=== PATIENT | female | born 1995 | race African-American/Black ===

== ENCOUNTER 2021-05-31 01:53 | Emergency (ER) | payer MEDICAID ==
[~2021-05-31] VITALS: Ht 170.2 cm; Wt 115.0 kg
[~2021-05-31 01:53] MED LIST: DOCU-138 MT; FERR325T6 MT
[2021-05-31 02:00] VITALS: BP 143/94
== END 2021-05-31 02:45 | disposition left against medical advice (07) ==
LOC: ER 01:53
DX: R07.89 Other chest pain (principal); I10 Essential (primary) hypertension
CPT/HCPCS: 71045; 99283

== ENCOUNTER 2021-06-16 13:43 | Emergency (ER) | payer MEDICAID ==
[~2021-06-16] VITALS: Ht 170.2 cm; Wt 136.0 kg
[2021-06-16] MEDS ORDERED: KETOROLAC 30MG/ML VIAL IV ONE (14:15)
[2021-06-16 15:38] VITALS: BP 145/80
[2021-06-16] MEDS ORDERED: HYDR-4001 MT (16:18)
[2021-06-16] MEDS ORDERED: IBUP-2028 MT (16:18)
== END 2021-06-16 17:29 | disposition home or self-care (01) ==
LOC: ER 13:43
DX: S93.491A Sprain of other ligament of right ankle, initial encounter (principal); V48.4XXA Person boarding or alighting a car injured in noncollision transport accident, initial encounter; Y93.89 Activity, other specified; Y92.488 Other paved roadways as the place of occurrence of the external cause; Y99.0 Civilian activity done for income or pay
CPT/HCPCS: 29515; 73610; 73700; 96374; 99284; J1885

== ENCOUNTER 2024-01-06 00:25 | Emergency (ER) | payer MEDICAID, OTHER ==
[~2024-01-06] VITALS: Ht 167.6 cm; Wt 200.0 kg
[~2024-01-06 00:25] MED LIST changes: +HYDR-4001 MT; +IBUP-2028 MT
[2024-01-06 00:29] VITALS: O2SAT 99
[2024-01-06 01:35] LABS: BASOPHILS % 0.8 % (0.0-2.0); HEMATOCRIT. 28.6 % (36.0-48.0); HEMOGLOBIN. 8.4 g/dL (12.0-16.0); LYMPHOCYTES % 31.6 % (20.0-50.0); MEAN CORPUSCULAR HEMOGLOBIN 19.9 pg (28.0-32.0); MEAN CORPUSCULAR HGB CONC 29.4 g/dL (31.0-37.0); MEAN CORPUSCULAR VOLUME 67.8 fL (81.0-99.0); MEAN PLATELET VOLUME 7.7 fl (7.4-10.4); MONOCYTES % 7.4 % (2.0-8.0); NEUTROPHILS % 59.2 % (40.0-76.0); PLATELET 427 x1000/uL (130-400); RED BLOOD CELL COUNT 4.22 mill/uL (4.2-5.4); RED CELL DISTRIBUTION WIDTH 18.8 % (11.6-14.6); WHITE BLOOD COUNT 6.2 x1000/uL (4.5-11.0)
[2024-01-06 01:41] LABS: ADD RBC MORPHOLOGY YES; DIFFERENTIAL COMMENT 1
[2024-01-06 02:01] LABS: CHLORIDE 108 mEq/L (98-107); POTASSIUM 3.9 mEq/L (3.5-5.1); SODIUM 140 mEq/L (136-145)
[2024-01-06 02:02] LABS: CALCIUM 8.8 mg/dL (8.7-10.4); CARBON DIOXIDE 25 mEq/L (21-32)
[2024-01-06 02:07] LABS: CREATININE 0.8 mg/dL (0.6-1.0); GLUCOSE 116 mg/dL (70-105); UREA NITROGEN BLOOD 17 mg/dL (9-23)
[2024-01-06 02:11] LABS: TROPONIN I HIGH SENSITIVITY < 4 ng/L (3.0-34)
[2024-01-06 02:13] LABS: HCG SCREEN NEGATIVE
[2024-01-06 03:11] VITALS: BP 142/87; PULSE 70; RESP 13; TEMP 97.7
[2024-01-06] MEDS ORDERED: NAPR-1176 MT (03:28)
[2024-01-06 04:00] LABS: TROPONIN I HIGH SENSITIVITY < 4 ng/L (3.0-34)
[2024-01-06 08:25] LABS: ANISOCYTOSIS 2+; MICROCYTOSIS 2+; PLATELET ESTIMATE SLIGHTLY INCREASED
[2024-01-06 08:26] LABS: HYPOCHROMASIA 1+
== END 2024-01-06 05:34 | disposition home or self-care (01) ==
LOC: ER 00:25
DX: M94.0 Chondrocostal junction syndrome [Tietze] (principal)
CPT/HCPCS: 80048; 84703; 85025; 85379; 84484; 36415; 71045; 99284; Z7610

== ENCOUNTER 2024-10-04 | Emergency (ER) | payer MEDICAID ==
[~2024-10-04] VITALS: Ht 172.7 cm; Wt 120.0 kg
[~2024-10-04] MED LIST changes: +NAPR-1176 MT
[2024-10-04 00:23] VITALS: O2SAT 99
[2024-10-04] MEDS ORDERED: METOCLOPRAMIDE HCL 10MG TABLET PO ONE (01:45)
[2024-10-04] MEDS ORDERED: DIPHENHYDRAMINE 50MG CAPSULE PO ONE (01:45)
[2024-10-04] MEDS ORDERED: KETOROLAC 30MG/ML VIAL IM ONE (01:45)
[2024-10-04] MEDS ORDERED: ASPI-1154 PO (01:58)
[2024-10-04 02:14] VITALS: BP 143/90; PULSE 90; RESP 18; TEMP 36.4; O2SAT 100
[2024-10-04] MEDS ORDERED: METOCLOPRAMIDE HCL 10MG TABLET PO NR (02:15)
[2024-10-04] MEDS ORDERED: DIPHENHYDRAMINE 25MG CAPSULE PO NR (02:15)
[2024-10-04] MEDS ORDERED: KETOROLAC 30MG/ML VIAL IM NR (02:15)
== END 2024-10-04 02:17 | disposition home or self-care (01) ==
LOC: ER
DX: G43.909 Migraine, unspecified, not intractable, without status migrainosus (principal); R07.89 Other chest pain; F41.9 Anxiety disorder, unspecified; Z79.899 Other long term (current) drug therapy
CPT/HCPCS: 99283; 71045; 93005; Q0163; J1885; J8597

== ENCOUNTER 2024-12-17 02:08 | Emergency (ER) | payer MEDICAID ==
[~2024-12-17] VITALS: Ht 175.3 cm; Wt 136.0 kg
[~2024-12-17 02:08] MED LIST changes: +ASPI-1154 PO
[2024-12-17 02:16] VITALS: O2SAT 99
[2024-12-17 02:30] VITALS: TEMP 36.8
[2024-12-17 03:29] LABS: BASOPHILS % 0.3 % (0.0-2.0); EOSINOPHILS % 1.9 % (0.0-5.0); HEMATOCRIT. 29.6 % (36.0-48.0); HEMOGLOBIN. 8.6 g/dL (12.0-16.0); LYMPHOCYTES % 24.7 % (20.0-50.0); MEAN CORPUSCULAR HEMOGLOBIN 19.3 pg (28.0-32.0); MEAN CORPUSCULAR HGB CONC 29.2 g/dL (31.0-37.0); MEAN CORPUSCULAR VOLUME 66.2 fL (81.0-99.0); NEUTROPHILS % 66.1 % (40.0-76.0); PLATELET 331 x1000/uL (130-400); RED BLOOD CELL COUNT 4.47 mill/uL (4.2-5.4); WHITE BLOOD COUNT 7.8 x1000/uL (4.5-11.0)
[2024-12-17 03:30] VITALS: TEMP 98.2
[2024-12-17] MEDS: ACETAMINOPHEN 325MG TABLET PO ONE (03:30)
[2024-12-17 03:37] LABS: CHLORIDE 109 mEq/L (98-107); SODIUM 140 mEq/L (136-145)
[2024-12-17 03:38] LABS: ADD RBC MORPHOLOGY YES; CALCIUM 8.8 mg/dL (8.7-10.4); CARBON DIOXIDE 26 mEq/L (21-32); DIFFERENTIAL COMMENT 1
[2024-12-17 03:43] LABS: CREATININE 0.7 mg/dL (0.6-1.0); ETHANOL BLOOD < 10 mg/dL (<10); GLUCOSE 129 mg/dL (70-105); UREA NITROGEN BLOOD 16 mg/dL (9-23)
[2024-12-17 03:44] LABS: PARTIAL THROMBOPLASTIN TIME 24.8 sec (23.4-31.0); PROTHROMBIN TIME 10.8 sec (9.6-11.0)
[2024-12-17 03:51] LABS: HCG SCREEN NEGATIVE
[2024-12-17 03:58] LABS: TROPONIN I HIGH SENSITIVITY < 4 ng/L (3.0-34)
[2024-12-17] MEDS: AMLODIPINE 2.5MG TABLET PO SCH (04:15)
[2024-12-17] MEDS ORDERED: IBUP-2029 MT (04:15)
[2024-12-17] MEDS ORDERED: AMLO2.5T45 MT (04:16)
[2024-12-17 04:32] VITALS: BP 121/77; PULSE 73; RESP 18; O2SAT 100
[2024-12-17 06:54] LABS: PLATELET ESTIMATE NORMAL
[2024-12-17 06:55] LABS: HYPOCHROMASIA 1+; MICROCYTOSIS 2+
== END 2024-12-17 04:42 | disposition home or self-care (01) ==
LOC: ER 02:08
DX: R51.9 Headache, unspecified (principal); R07.89 Other chest pain; I10 Essential (primary) hypertension; F41.9 Anxiety disorder, unspecified; D64.9 Anemia, unspecified; Z79.899 Other long term (current) drug therapy
CPT/HCPCS: 36415; 71045; 80048; 80320; 83880; 84484; 84703; 85025; 93005; 99285; G0480

== ENCOUNTER 2025-03-27 00:10 | Emergency (ER) | payer MEDICAID ==
[~2025-03-27] VITALS: Ht 160 cm; Wt 163.0 kg
[~2025-03-27 00:10] MED LIST changes: +IBUP-1455 MT
[2025-03-27 00:39] VITALS: O2SAT 100
[2025-03-27 01:18] LABS: HEMATOCRIT. 29.0 % (36.0-48.0); HEMOGLOBIN. 8.5 g/dL (12.0-16.0); MEAN PLATELET VOLUME 7.6 fl (7.4-10.4); PLATELET 324 x1000/uL (130-400); RED BLOOD CELL COUNT 4.38 mill/uL (4.2-5.4); RED CELL DISTRIBUTION WIDTH 17.5 % (11.6-14.6)
[2025-03-27 01:31] LABS: CREATININE 0.7 mg/dL (0.6-1.0); UREA NITROGEN BLOOD 10 mg/dL (9-23)
[2025-03-27 01:33] LABS: ASPARTATE AMINOTRANSFERASE 40 IU/L (<34); BILIRUBIN DIRECT < 0.1 mg/dL (<=3.0)
[2025-03-27 01:34] LABS: BILIRUBIN TOTAL 0.2 mg/dL (0.1-1.0); HCG SCREEN NEGATIVE; PROTEIN TOTAL 7.4 g/dL (6.0-8.3)
[2025-03-27] MEDS: KETOROLAC 15MG/ML VIAL IM ONE (03:41)
[2025-03-27] MEDS: DIPHENHYDRAMINE 12.5MG/5ML UDC PO ONE (03:41)
[2025-03-27] MEDS: SUMATRIPTAN SUCCINATE 6MG/0.5ML VIAL SUBCUT ONE (03:41)
[2025-03-27] MEDS: PROCHLORPERAZINE MALEATE 10MG TABLET PO ONE (03:42)
[2025-03-27] MEDS: FAMOTIDINE 20MG TABLET PO ONE (03:42)
[2025-03-27] MEDS: DEXAMETHASONE 4MG TABLET PO ONE (03:42)
[2025-03-27 04:52] LABS: TROPONIN I HIGH SENSITIVITY < 4 ng/L (3.0-34)
[2025-03-27 04:59] LABS: LYMPHOCYTES % MANUAL 34.0 % (20.0-60.0); MONOCYTES % MANUAL 2.0 % (2.0-8.0); NEUTROPHILS % MANUAL 64.0 % (45.0-75.0)
[2025-03-27 05:00] LABS: PLATELET ESTIMATE NORMAL
[2025-03-27 06:15] LABS: INFLUENZA TYPE A Presumptive Negative (Pres. Neg.)
[2025-03-27 06:16] LABS: INFLUENZA TYPE B Presumptive Negative (Pres. Neg.)
[2025-03-27 06:17] LABS: RESPIRATORY SYNCYTIAL VIRUS Not Detected (Not Detectd)
[2025-03-27 06:22] LABS: CLARITY URINE TURBID (CLEAR); COLOR URINE DARK YELLOW (YELLOW); GLUCOSE URINE NEGATIVE (NEGATIVE); KETONES URINE NEGATIVE (NEGATIVE); LEUKOCYTE ESTERASE URINE NEGATIVE (NEGATIVE); NITRITE URINE NEGATIVE (NEGATIVE); OCCULT BLOOD URINE NEGATIVE (NEGATIVE); PH URINE 5.5 (4.5-8.0); PROTEIN URINE 1+ (NEGATIVE); SPECIFIC GRAVITY URINE 1.038 (1.005-1.030); UROBILINOGEN URINE 1.0 E.U./dL (0.2-1.0)
[2025-03-27] MEDS ORDERED: DOCU-138 MT (06:39)
[2025-03-27] MEDS ORDERED: IBUP-1455 MT (06:39)
[2025-03-27] MEDS ORDERED: ASPI-1154 PO (06:39)
[2025-03-27] MEDS ORDERED: FERR325T6 MT (06:39)
[2025-03-27] MEDS ORDERED: SUMA100T16 MT (06:40)
[2025-03-27] MEDS ORDERED: SUMA11AE2 BOTHNSTRLS (06:40)
[2025-03-27] MEDS ORDERED: FAMO20TA8 MT (06:41)
[2025-03-27 07:02] VITALS: BP 165/99; PULSE 75; RESP 16; TEMP 37.1; O2SAT 100
[2025-03-27 07:15] LABS: AMORPHOUS SEDIMENT URINE 3+ /lpf; BACTERIA URINE 2+; RBC URINE NONE SEEN /hpf (0-2); SQUAMOUS EPITHELIAL CELL URINE FEW /lpf (RARE/1+); WBC URINE NONE SEEN /hpf (0-2)
== END 2025-03-27 07:03 | disposition home or self-care (01) ==
LOC: ER 00:10
DX: R51.9 Headache, unspecified (principal); R07.9 Chest pain, unspecified; K21.9 Gastro-esophageal reflux disease without esophagitis; D64.9 Anemia, unspecified; F41.9 Anxiety disorder, unspecified; Z20.822 Contact with and (suspected) exposure to COVID-19
CPT/HCPCS: 36415; 71045; 80048; 80076; 81003; 84484; 84703; 85025; 87420; 87426; 87804; 93005; 96372; 99285; J1885; J3030; J8540; Q0163; Q0164